=== PATIENT | male | born 1945 | race Caucasian/White ===

== ENCOUNTER → 2016-08-19 | Outpatient (CLI) | payer OTHER ==
--- NOTE | 2016-08-19 14:30 | RAD ---
PET/CT imaging whole body History: Pulmonary nodule. Comparison: None. Technique: PET examination was performed from the skull vertex to the toes after intravenous administration of 13.8 mCi Fluorine [address] scan was performed for the purposes of localization and attenuation, not for primary diagnosis. Blood glucose level at time of injection was 112 mg/dl. Findings: CT images demonstrate significant motion artifact at multiple levels including within the lungs of the level of the pulmonary nodule. The left upper lobe soft tissue pulmonary nodule is suboptimally evaluated on CT imaging secondary to motion. The nodule could measure up to 2.3 cm in maximum dimension. This nodule demonstrates maximum SUV of 7.8. No metabolically active lymphadenopathy is seen in the neck, chest, abdomen, or pelvis. No abnormal FDG activity is seen involving the legs. CT images demonstrate mild emphysematous changes of the lungs, primarily in the upper lobes. There is evidence of cholelithiasis. Several calcifications are seen within the urinary bladder lumen which are compatible with small bladder stones. There is a 6 mm calcification in the left hemipelvis which could be within the distal left ureter and represent nonobstructive ureteral stone versus a bladder stone as there is some motion at this level. The prostate is enlarged. Colonic diverticulosis is seen, but no diverticulitis is appreciated. Laminectomy changes are seen from L2 through L4. Impression: 1. There is motion artifact on the CT images. A left upper lobe pulmonary nodule could measure up to 2.3 cm in maximum dimension and demonstrates maximum SUV of 7.8. This would be compatible with pulmonary malignancy. 2. No evidence of metastatic disease in the neck, chest, abdomen, or pelvis. 3. Calcifications are seen involving the urinary bladder lumen, favored to represent bladder stones. There is a calcification in the left aspect of the pelvis which measures 6 mm, could represent bladder stone versus nonobstructive distal left ureteral stone. 4. Colonic diverticulosis without evidence of diverticulitis.
== END | disposition home or self-care (01) ==
LOC: PETSC 11:45
PROVIDERS: ATTEND Internal Medicine
DX: R91.1 Solitary pulmonary nodule (principal)
CPT/HCPCS: 78815; A9552

== ENCOUNTER → 2016-09-24 | Outpatient (CLI) | payer OTHER ==
[~2016-09-24] VITALS: Ht 185.4 cm; Wt 122.5 kg
[2016-09-24] VITALS (13 sets, daily range): BP systolic 109–148; BP diastolic 6–85
[~2016-09-24] MED LIST: ASCO10002 PO; ASPI81TA44 PO; BISA-42 PO; CHOL100013 PO; FLUMAZENIL 0.5 MG/5 ML VIAL. IV ONE; GABA-586 PO; GELATIN SPONGE SIZE 12-7MM SPONGE. ONE; HYDR12.58 PO; IBUP200T93 PO; LIDOCAINE 1% / SOD BICARB 8.4% 20 ML VIAL. IJ ONE; LOSA100T6 PO; METF500T4 PO; METH-38 PO; MIDAZOLAM HCL/PF 2 MG/2 ML VIAL. IV ONE; MIDAZOLAM HCL/PF 2 MG/2 ML VIAL. ONE; MULT-690 PO; NALOXONE 0.4 MG/ML VIAL. ONE; OMEG1CAP28 PO; OMEP20TA8 PO; OMEP40CA5 PO; SIMV10TA3 PO; TAMS0.4C2 PO; VIT1TABL32 PO; fentaNYL PF VIAL 100 MCG/2 ML VIAL IV ONE; fentaNYL PF VIAL 100 MCG/2 ML VIAL ONE
[2016-09-24 09:30] LABS: HEMOGLOBIN 12.8 g/dL (13.0-17.5); RED BLOOD COUNT 4.39 x10^6/uL (4.30-5.70); WHITE BLOOD COUNT 7.8 x10^3/uL (4.0-11.0)
[2016-09-24 09:31] LABS: BASO % 1 % (0-3); EOS % 2 % (0-3); LYMPH # 1.8 x10^3/uL (1.0-4.8); LYMPH % 23 % (24-48); MEAN CORPUSCULAR HEMOGLOBIN 29 pg (25-35); MEAN CORPUSCULAR HGB CONC 33 g/dL (31-37); MEAN CORPUSCULAR VOLUME 89 fL (79-100); MONO % 8 % (0-9); NEUT % 67 % (31-73); PLATELET COUNT 283 x10^3/uL (140-400); RED CELL DISTRIBUTION WIDTH 14.6 % (11.5-14.5)
[2016-09-24 09:43] LABS: PROTHROMBIN TIME PATIENT 12.4 SEC (11.7-14.0)
--- NOTE | 2016-09-24 13:28 | RAD ---
Indication follow-up. Assess for potential pneumothorax following lung biopsy. Note is made of the PET/CT examination 08/19/2016. Inspiratory and expiratory films of the chest were obtained. Known mass in the left lung is seen. Best demonstrated on the expiratory film is a small left pneumothorax. No additional significant finding seen IMPRESSION: Small left pneumothorax post lung biopsy
--- NOTE | 2016-09-24 14:05 | RAD ---
CT-guided biopsy, left upper lobe pulmonary nodule 09/24/2016 Discussion: Prior PET/CT scan from August 19, 2016 is reviewed demonstrating a metabolically active nodule in left upper lobe measuring approximately 2 cm in diameter. The risks and benefits of the procedure including but not limited to pneumothorax, bleeding including hemoptysis, and nondiagnostic biopsy were discussed the patient and his . Informed consent was obtained. The patient was brought to the CT scanner and placed in right lateral acute disposition. Imaging was performed redemonstrating a nodule in the posterior left upper lobe along the major fissure. A posterior approach was selected as the given nodule size and location transgression of the fissure was felt to be likely given any approach, and this would avoid biopsy trough extending through the pleura. Once an appropriate site for skin entry was selected 1% lidocaine without epinephrine was administered to the skin and subcutaneous tissues. Under intermittent CT guidance a 19-gauge guiding needle was advanced to the periphery of the nodule. 3 passes were made with 20-gauge core biopsy needle. Samples were placed in formalin. The guiding needle was then removed and manual pressure held. Sterile dressing was applied. Postbiopsy imaging was performed demonstrating very small left pneumothorax and mild perilesional hemorrhage. The patient was transferred to the recovery unit in stable condition. Procedure was performed under moderate sedation including continuous cardiopulmonary monitoring via a dedicated sedation nurse. Sedation time: [address]-guided biopsy of left upper lobe pulmonary nodules described. Tiny postprocedural pneumothorax noted. The patient will be closely observed in the postrecovery unit and a follow-up chest x-ray will be obtained.
--- NOTE | 2016-09-24 15:55 | RAD ---
Portable chest, 09/24/2016, 3:34 PM: History: Follow-up pneumothorax after lung biopsy Comparison is made to a study from 09/24/2016. There is a small left apical pneumothorax which is less well-defined than on the previous study. It has not increased in size. An irregular parenchymal opacity is again noted in the left upper lobe. There is no evidence of pleural fluid. The heart size and pulmonary vascularity are normal. IMPRESSION: Stable small left apical pneumothorax
== END ==
LOC: INTRAD 08:17
PROVIDERS: ATTEND Nurse Practitioner
DX: R91.1 Solitary pulmonary nodule (principal); I10 Essential (primary) hypertension; J44.9 Chronic obstructive pulmonary disease, unspecified; K21.9 Gastro-esophageal reflux disease without esophagitis; F17.200 Nicotine dependence, unspecified, uncomplicated; E11.36 Type 2 diabetes mellitus with diabetic cataract; Z98.890 Other specified postprocedural states; Z85.828 Personal history of other malignant neoplasm of skin
CPT/HCPCS: 32405; 36415; 71010; 71035; 77012; 85027; 85610; J2250; J3010; 99152

== ENCOUNTER → 2021-05-26 | Outpatient (CLI) | payer MEDICARE, OTHER ==
[2016-09-24 13:00] VITALS: BP 126/71
[~2021-05-26] MED LIST changes: +ASCO100019 PO; -ASCO10002 PO; -ASPI81TA44 PO; +ASPI81TA59 PO; -FLUMAZENIL 0.5 MG/5 ML VIAL. IV ONE; -GABA-586 PO; +GABA300C18 PO; -GELATIN SPONGE SIZE 12-7MM SPONGE. ONE; +IBUP-5 PO; -IBUP200T93 PO; -LIDOCAINE 1% / SOD BICARB 8.4% 20 ML VIAL. IJ ONE; +LOSA100T14 PO; -LOSA100T6 PO; +METF500T16 PO; -METF500T4 PO; -MIDAZOLAM HCL/PF 2 MG/2 ML VIAL. IV ONE; -MIDAZOLAM HCL/PF 2 MG/2 ML VIAL. ONE; -NALOXONE 0.4 MG/ML VIAL. ONE; -OMEP40CA5 PO; +OMEP40CA7 PO; +SIMV10TA15 PO; -SIMV10TA3 PO; -fentaNYL PF VIAL 100 MCG/2 ML VIAL IV ONE; -fentaNYL PF VIAL 100 MCG/2 ML VIAL ONE
--- NOTE | 2021-05-26 17:42 | KCIC ---
EXAM: MRI LEFT SHOULDER WITHOUT CONTRAST INDICATION: Left shoulder pain and limited range of motion, prior surgery years ago COMPARISON: Left shoulder radiograph 05/18/2021 TECHNIQUE: Multiplanar, multisequence imaging of the left shoulder without contrast. FINDINGS: ROTATOR CUFF: There are surgical changes of rotator cuff repair. There is a recurrent near-complete f ull-thickness tear of the supraspinatus tendon. Small amount of far anterior supraspinatus tendon fib ers remain intact. There is retraction of most the torn tendon to the medial humeral head. The infras pinatus and teres minor tendons are intact. There is tendinopathy of the subscapularis tendon. LABRUM: The superior and posterior superior labrum is blunted. BICEPS TENDON: Biceps tendon is not visualized, which could be due to chronic complete tear or prior tenotomy. ACROMIOCLAVICULAR JOINT: Mild acromioclavicular degenerative joint disease with probable prior acromi oplasty. GLENOHUMERAL JOINT: There is scattered partial-thickness cartilage loss along the humeral head and up per glenoid. There are small cystic changes at the posterior superior humeral head. Alignment is norm al. Background marrow signal is normal. OTHER: Small joint effusion and small amount of fluid communicating with the bursa and acromioclavicu lar joint. IMPRESSION: 1. Surgical changes of rotator cuff repair. 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 Some far anterior fibers are intact. 2. Subscapularis tendinopathy. 3. Biceps tendon not well visualized, likely due to chronic complete tear versus tenotomy. 4. Mild acromioclavicular degenerative joint disease with probable prior acromioplasty. 5. Mild glenohumeral degenerative joint disease. Electronically signed by: Ruth Tyler MD (05/26/2021 5:40 PM) [id number]
== END ==
LOC: KCIC MRI 14:24
PROVIDERS: ATTEND Physician Assistant
DX: M75.122 Complete rotator cuff tear or rupture of left shoulder, not specified as traumatic (principal); M19.012 Primary osteoarthritis, left shoulder; M25.412 Effusion, left shoulder; M75.42 Impingement syndrome of left shoulder; M75.82 Other shoulder lesions, left shoulder; Z98.890 Other specified postprocedural states
CPT/HCPCS: 73221